=== PATIENT | female | born 1995 | race Two or more races ===

== ENCOUNTER 2024-09-17 14:25 | Outpatient (CLI) | payer OTHER | END 2024-09-17 14:31 | disposition home or self-care (01) | LOC: PRENATAL 14:25 | PROVIDERS: ATTEND Obstetrics & Gynecology Maternal & Fetal Medicine | DX: O36.80X0 Pregnancy with inconclusive fetal viability, not applicable or unspecified (principal); Z36.82 Encounter for antenatal screening for nuchal translucency; Z14.8 Genetic carrier of other disease; Z3A.13 13 weeks gestation of pregnancy ==

== ENCOUNTER → 2024-10-27 11:14 | Outpatient (CLI) | payer OTHER | END | disposition home or self-care (01) | LOC: PRENATAL 11:14 | PROVIDERS: ATTEND Obstetrics & Gynecology Maternal & Fetal Medicine | DX: O44.00 Complete placenta previa NOS or without hemorrhage, unspecified trimester (principal); Z14.8 Genetic carrier of other disease; Z3A.19 19 weeks gestation of pregnancy ==

== ENCOUNTER → 2025-01-08 09:58 | Outpatient (CLI) | payer OTHER | END | disposition home or self-care (01) | LOC: PRENATAL 09:58 | PROVIDERS: ATTEND Obstetrics & Gynecology Maternal & Fetal Medicine | DX: O26.849 Uterine size-date discrepancy, unspecified trimester (principal); O44.00 Complete placenta previa NOS or without hemorrhage, unspecified trimester; Z14.8 Genetic carrier of other disease; Z3A.30 30 weeks gestation of pregnancy ==

== ENCOUNTER 2025-02-18 11:19 | Outpatient (CLI) | payer OTHER | END 2025-02-18 11:20 | disposition home or self-care (01) | LOC: PRENATAL 11:19 | PROVIDERS: ATTEND Obstetrics & Gynecology Maternal & Fetal Medicine | DX: O26.849 Uterine size-date discrepancy, unspecified trimester (principal); O36.8130 Decreased fetal movements, third trimester, not applicable or unspecified; Z14.8 Genetic carrier of other disease; Z3A.35 35 weeks gestation of pregnancy ==

== ENCOUNTER 2025-03-11 14:00 | Inpatient (IN) | payer OTHER ==
[~2025-03-11] VITALS: Ht 157.5 cm; Wt 2.7 kg
[2025-03-24] MEDS ORDERED: PRENATABS FA T1 EACH PO (08:35)
[2025-03-24 08:36] VITALS: BP 116/84
[2025-03-24] MEDS ORDERED: MISOPROSTOL 25 MCG/4 ML GEL.W.APPL VAG ONE ×2 (08:45→13:30)
[2025-03-24 08:55] LABS: BASO % 0.4 % (0.1-1.2); EOS # 0.03 (0.04-0.54); EOS % 0.3 % (0.7-7.0); LYMPH # 1.97 (1.18-3.74); LYMPH % 20.1 % (19.3-53.1); MEAN PLATELET VOLUME 11.50 fl (9.4-12.4); MONO # 0.65 (0.24-0.82); MONO % 6.6 % (4.7-12.5); NEUT # 7.06 (1.56-6.13); NEUT % 72.1 % (34.0-71.1); RED CELL DISTRIBUTION WIDTH 13.9 % (11.6-14.4)
[2025-03-24] MEDS ORDERED: RINGERS SOLUTION,LACTATED 1,000 ML IV SCH (09:00)
[2025-03-24 09:22] LABS: INR < 0.93
[2025-03-24 09:40] LABS: URINE APPEARANCE Clear; URINE BILIRRUBIN Negative (NEGATIVE); URINE BLOOD Negative; URINE COLOR Yellow; URINE GLUCOSE Negative (NEGATIVE); URINE KETONE Negative (NEGATIVE); URINE LEUKOCYTE Trace; URINE NITRATE Negative; URINE PROTEIN Negative (NEGATIVE); URINE UROBILINOGEN 0.2 E.U./dl
[2025-03-24 09:41] LABS: URINE BACTERIA 653.9 uL (0.0-1933); URINE EPITHELIAL CELLS 18.1 uL (0.0-38.8); URINE RBC 15.2 uL (0.0-20.8); URINE WBC 34.1 uL (0.0-23.2)
[2025-03-24 09:42] LABS: URINE CAST 0.00 uL (0.0-1.40)
[2025-03-24 11:34] VITALS: BP 120/74
[2025-03-24 15:12] VITALS: BP 120/80
[2025-03-24] MEDS ORDERED: OXYTOCIN 10 UNITS/ML VIAL ONE (17:38)
[2025-03-24] MEDS ORDERED: ERYTHROMYCIN BASE OPHT 1GM EACH TUBE OP ONE (17:38)
[2025-03-24] MEDS ORDERED: CEFAZOLIN SODIUM 1,000 MG VIAL ONE (18:15)
[2025-03-24] MEDS ORDERED: MORPHINE SULFATE 4 MG/ML CARTRIDGE IV SCH (21:00)
[2025-03-25 01:21] VITALS: BP 126/76
[2025-03-25] MEDS ORDERED: KETOROLAC TROMETHAMINE 60 MG VIAL IM NR (02:00)
[2025-03-25] MEDS ORDERED: OxyCODONE HCL 5 MG TABLET (ROXICODONE) PO SCH (05:00)
[2025-03-25 06:54] LABS: BASO % 0.2 % (0.1-1.2); EOS # 0.02 (0.04-0.54); EOS % 0.1 % (0.7-7.0); LYMPH # 1.23 (1.18-3.74); LYMPH % 8.8 % (19.3-53.1); MEAN PLATELET VOLUME 11.40 fl (9.4-12.4); MONO # 0.63 (0.24-0.82); MONO % 4.5 % (4.7-12.5); NEUT # 11.95 (1.56-6.13); NEUT % 86.0 % (34.0-71.1); RED CELL DISTRIBUTION WIDTH 13.8 % (11.6-14.4)
[2025-03-25] MEDS ORDERED: PNV,CALCIUM 72/IRON/FOLIC ACID 1 TAB TABLET PO SCH (08:00)
[2025-03-25] MEDS ORDERED: SIMETHICONE 125 MG CAPSULE PO SCH (08:00)
[2025-03-25] MEDS ORDERED: DOCUSATE SODIUM 100MG CAP PO SCH (08:00)
[2025-03-25 08:54] VITALS: BP 117/75
[2025-03-25] MEDS ORDERED: CEFAZOLIN SODIUM 1,000 MG VIAL IV ONE (17:30)
[2025-03-25 17:41] VITALS: BP 109/73
[2025-03-26 00:46] VITALS: BP 140/80
[2025-03-26 08:53] VITALS: BP 103/69
[2025-03-26 17:04] VITALS: BP 123/77
[2025-03-27 00:52] VITALS: BP 110/74
[2025-03-27 08:00] VITALS: BP 118/78
== END 2025-03-27 17:01 | disposition home or self-care (01) | DRG 788 ==
LOC: OB/GYN 03-21 14:00 → LDR 03-24 06:01 → OB/GYN 03-24 06:01
PROVIDERS: ADMIT Obstetrics & Gynecology; ATTEND Obstetrics & Gynecology
PROC: 4A1HXCZ Monitoring of Products of Conception, Cardiac Rate, External Approach (ICD-10-PCS; 2025-03-24)
PROC: 10D00Z1 Extraction of Products of Conception, Low, Open Approach (ICD-10-PCS; principal; 2025-03-24 21:45)
DX: O62.1 Secondary uterine inertia (principal); O42.02 Full-term premature rupture of membranes, onset of labor within 24 hours of rupture; Z3A.40 40 weeks gestation of pregnancy; Z37.0 Single live birth